=== PATIENT | female | born 1995 | race Hispanic/Latino ===

== ENCOUNTER 2020-02-25 23:58 | Emergency (ER) | payer OTHER ==
[~2020-02-25] VITALS: Ht 160 cm; Wt 118.4 kg
[2020-02-26 00:57] VITALS: BP 142/85
[2020-02-26] MEDS ORDERED: VENTOLIN HFA IH ONE (01:06)
[2020-02-26 01:11] VITALS: BP 142/85
[2020-02-26 01:12] VITALS: BP 142/85
[2020-02-26] MEDS ORDERED: PREDNISONE ONE (01:12)
--- NOTE | 2020-02-26 01:12 | ER.PDOC ---
General Chief Complaint: Dyspnea/Respdistress Stated Complaint: DIFF BREATHING Time seen by MD: 01:05 Source: patient Exam Limitations: no limitations History of Present Illness Initial Comments patient c/o progressively worsening SOB since she was dx'd with COVID19 4 days ago; she is visiting from out of town and left her albuterol inhaler behind Timing/Duration: 1 week, increasing Severity: mild, moderate Prior Episodes/Possible Cause: occasional episodes Modifying Factors: improves with albuterol inhaler Associated Symptoms: cough Prior symptoms/Treatment: Similar symptoms previous Allergies: Coded Allergies: No Known Allergies (Unverified , 03/07/13) Past Medical History Medical History: asthma Surgical History: no surgical history Family History Significant Family History: no pertinent family hx Social History Smoking: non-smoker Alcohol Use: none Drug Use: none Review of Systems Constitutional: no symptoms reported EENTM: no symptoms reported Respiratory: cough, shortness of breath, wheezing Cardiovascular: no symptoms reported Gastrointestinal: no symptoms reported Genitourinary: no symptoms reported Musculoskeletal: no symptoms reported Skin: no symptoms reported Psychiatric/Neurological: no symptoms reported All Other Systems: Reviewed and Negative Physical Exam General Appearance: No Apparent Distress, WD/WN, Obese HEENT: PERRL/EOMI, Normal ENT Inspection Respiratory: normal breath sounds (no wheezing on exam; patient taking shallow breaths), no respiratory distress, no accessory muscle use Cardiovascular: Regular Rate, Rhythm, No Murmur Gastrointestinal: Normal Bowel Sounds, Non Tender Extremities: No Pedal Edema, No Calf Tenderness Neurologic/Psychiatric: Alert, Normal Mood/Affect, Oriented x 3 Skin: Normal Color, Warm/Dry Results/Orders Results/Orders Orders - VICTOR M ESTRADA DO Albuterol Sulfate (Ventolin Hfa) (02/26/20 01:04) Prednisone (Prednisone) (02/26/20 01:04) Albuterol Sulfate (Ventolin Hfa) (02/26/20 01:06) Prednisone (Prednisone) (02/26/20 01:12) Vital Signs Date Time Temp Pulse Resp B/P (MAP) Pulse Ox O2 Delivery O2 Flow Rate FiO2 02/26/20 02:38 100.4 102 20 126/78 (94) 96 Room Air 02/26/20 01:31 114 22 95 02/26/20 01:12 100.4 105 36 142/85 (104) 96 02/26/20 01:11 100.4 105 36 02/26/20 00:57 100.4 105 36 96 Administered Medications Medications (Trade) Dose Ordered Sig/Mikey Route PRN Reason Start Time Stop Time Status Last Admin Dose Admin Albuterol Sulfate (Ventolin Hfa) 2 inh STAT STAT IH 02/26/20 01:04 02/26/20 01:06 DC 02/26/20 01:30 2 INH Prednisone (Prednisone) 60 mg STAT STAT PO 02/26/20 01:04 02/26/20 01:06 DC 02/26/20 01:16 60 MG Progress Progress symptoms improved after albuterol ER DEPART Departure Time of Disposition: 02:10 Disposition: 01 HOME, SELF-CARE Impression: Primary Impression: 2019 novel coronavirus disease (COVID-19) Additional Impressions: Dyspnea Asthma exacerbation Condition: Improved Patient Instructions: Asthma, Acute Bronchospasm, Viral Syndrome Referrals: PCP,UNKNOWN (PCP) PRIMARY CARE PROVIDER Additional Instructions: Return to ER if you experience any difficulty breathing or swallowing, or for any emergent concerns. Follow up with your doctor next week for reevaluation. Alternate Tylenol and Motrin per package instructions every 4 hours as needed for fever. Duration or Time Spent with Pa: 20 min Problem Qualifiers Additional Impressions: Dyspnea Dyspnea type: shortness of breath Qualified Codes: R06.02 - Shortness of breath Asthma exacerbation Asthma severity: mild Asthma persistence: intermittent Qualified Codes: J45.21 - Mild intermittent asthma with (acute) exacerbation VICTOR M ESTRADA DO Feb 26, 2020 01:12
[2020-02-26] MEDS: PREDNISONE PO STA (01:16)
[2020-02-26] MEDS: VENTOLIN HFA IH STA (01:30)
--- NOTE | 2020-02-26 01:45 | NUR ---
RADIOLOGY Radiology here to do CXR
[2020-02-26 02:38] VITALS: BP 126/78
== END 2020-02-26 02:30 | disposition home or self-care (01) ==
LOC: ER 23:58
DX: J45.21 Mild intermittent asthma with (acute) exacerbation (principal); Z79.899 Other long term (current) drug therapy
CPT/HCPCS: 94640; 99283; J7512; J7611